=== PATIENT | male | born 1980 | race Two or more races ===

== ENCOUNTER 2017-02-11 23:52 | Emergency (ER) | payer SELFPAY ==
--- NOTE | 2017-02-25 15:51 | ER ---
ADMIT: 02/11/2017 RM/LOC: ER [facility] MR#: [id number] [address] [id number] [place] [address] [place] [id number] Emergency Room Report SEX: M AGE: 36 : 1980 DATE: 02/11/2017 A 36-year-old, dropped an engine block on his finger this evening, comes in with finger pain. See T-sheet for history and physical. X-ray revealed obvious burn. Range of motion is normal. The patient was given Toradol and discharged. Told to ice and elevate the finger. DIAGNOSIS: Finger contusion. Srinivasa Garcia MD/ altagracia JOB #: [id number] CC: Kendrick Dodge MD, Attending Physician
== END 2017-02-12 01:05 | disposition home or self-care (01) ==
LOC: ER 23:52
DX: S60.031A Contusion of right middle finger without damage to nail, initial encounter (principal); W22.8XXA Striking against or struck by other objects, initial encounter; Y92.009 Unspecified place in unspecified non-institutional (private) residence as the place of occurrence of the external cause